=== PATIENT | male | born 1980 | race Caucasian/White ===

== ENCOUNTER 2019-08-28 23:23 | Emergency (ER) | payer OTHER ==
[~2019-08-28] VITALS: Ht 188 cm; Wt 172.4 kg
[2019-08-29 00:05] VITALS: BP_SYST 162
--- NOTE | 2019-08-29 00:05 | NUR ---
PT WAITING IN ER LOBBY, NO ER BED AVAILABLE CURRENTLY.
--- NOTE | 2019-08-29 00:06 | NUR ---
ER at bedside examining patient.
--- NOTE | 2019-08-29 00:06 | NUR ---
PT AAO AND AMBULATORY C/O RIGHT-SIDED FLANK PAIN SINCE 1400 TODAY. PT IS PALE AND REPORTS 10/10 PAIN. URINE CUP PROVIDED. WHEN ER BED OPENS UP, PT WILL BE BROUGHT BACK.
--- NOTE | 2019-08-29 00:48 | NUR ---
Patient ambulatory to bed hallway for evaluation
[2019-08-29 01:10] LABS: BILIRUBIN,URINE NEGATIVE (NEGATIVE); BLOOD, URINE 3+ (NEGATIVE); CLARITY/URINE CLEAR (CLEAR); COLOR,URINE YELLOW (YELLOW); GLUCOSE,URINE NEGATIVE (NEGATIVE); KETONES,URINE NEGATIVE (NEGATIVE); LEUKOCYTE ESTERASE ,URINE NEGATIVE (NEGATIVE); NITRITE, URINE NEGATIVE (NEGATIVE); PROTEIN URINE NEGATIVE (NEGATIVE)
[2019-08-29 01:18] LABS: BACTERIA,URINE RARE /HPF (None Seen); RBC,URINE 20-50 /HPF (0-3); WBC,URINE 0-3 /HPF (0-3)
[2019-08-29] MEDS ORDERED: KETOROLAC TROMETHAMINE 30 MG VIAL IVP ONE (01:30)
[2019-08-29] MEDS ORDERED: ONDANSETRON HCL 4 MG/2 ML VIAL IVP ONE (01:30)
[2019-08-29] MEDS ORDERED: NACL 0.9% 1,000 ML IV ONE (01:30)
[2019-08-29 02:08] LABS: HEMATOCRIT 40.2 % (36-54); HEMOGLOBIN 13.3 g/dL (14.0-18.0); MEAN CORPUSCULAR HEMOGLOBIN 29 pg (27-31); MEAN CORPUSCULAR HGB CONC 33 % (32-36); MEAN CORPUSCULAR VOLUME 88 fL (79.0-98.0); PLATELET COUNT (AUTO) 283 K/uL (130-430); RED BLOOD CELL COUNT(AUTO) 4.55 MIL/uL (4.2-6.2); RED CELL DISTRIBUTION WIDTH 14.1 % (9.0-15.0); WHITE BLOOD COUNT (AUTO) 16.3 K/uL (4.8-10.8)
[2019-08-29 02:15] LABS: CALCIUM 9.3 mg/dL (8.4-11.0); CREATININE 1.29 mg/dL (0.55-1.30); POTASSIUM 4.1 mmol/L (3.5-5.1)
[2019-08-29 02:21] LABS: ALBUMIN 3.5 g/dL (3.4-4.8)
[2019-08-29 02:24] LABS: ATYPICAL LYMPHOCYTES % 0 % (0-0); BAND % (MANUAL) 0 % (0-6); BASOPHILS % (MANUAL) 0 % (0-2); EOSINOPHILS % (MANUAL) 0 % (0-7); LYMPHOCYTES % (MANUAL) 3 % (20-46); MONOCYTES % (MANUAL) 6 % (0-11)
[2019-08-29 02:50] VITALS: BP_SYST 162
--- NOTE | 2019-08-29 02:50 | NUR ---
Patient given written and verbal discharge instructions and verbalizes understanding. ER MD discussed with patient the results and treatment provided. Patient in stable condition. ID arm band removed. IV catheter removed intact and dressing applied, no active bleeding. Rx of zofran and [place] given. Patient educated on pain management and to follow up with PMD. Pain Scale 0/10. Opportunity for questions provided and answered. Medication side effect fact sheet provided.
== END 2019-08-29 02:50 | disposition home or self-care (01) ==
LOC: SED 23:23
DX: N23 Unspecified renal colic (principal); R11.10 Vomiting, unspecified
CPT/HCPCS: 36415; 74176; 80053; 81000; 85007; 85027; 96361; 96374; 96375; 99284; J1885; J2405; J7030